=== PATIENT | female | born 1950 | race Caucasian/White ===

== ENCOUNTER 2022-03-15 17:52 | Observation (INO) ==
[2022-03-15] MEDS ORDERED: Ondansetron ODT 4 mg TAB 4 MG TAB SL ONE (20:35)
[2022-03-15 22:57] LABS: ABS Lymphocytes 1.3 10^3/ul (1.0-4.8); ABS Monocytes 0.3 10^3/ul (0-0.8); ABS Neutrophils 8.6 10^3/ul (1.5-7.7); Hematocrit 41 % (35-47); Hemoglobin 13.6 g/dL (12.0-16.0); Lymphocyte % 12.4 %; Mean Corpuscular HGB Conc 33 g/dL (31-36); Mean Corpuscular Hemoglobin 28 pg (27-31); Mean Corpuscular Volume 84 fL (80-97); Mean Platelet Volume 7.2 fL (7.4-10.4); Platelet Count 209 10^3/uL (150-450); Red Blood Count 4.86 10^6 /uL (3.70-4.87); Red Cell Distribution Width 13 % (10-15); White Blood Count 10.2 10^3/uL (3.5-10.8)
[2022-03-15 23:58] LABS: Albumin 4.3 g/dL (3.2-5.2); Calcium 9.2 mg/dL (8.6-10.3); Globulin 2.2 g/dL (2-4); Potassium 3.8 mmol/L (3.5-5.0); Total Bilirubin 0.6 mg/dL (0.2-1.0); Total Protein 6.5 g/dL (6.4-8.9); eGFR CKD-EPI 92.8 (>60)
[2022-03-16 00:29] LABS: High Sensitivity Troponin 1 Hr 5 pg/mL (<15)
[2022-03-16] MEDS ORDERED: Iohexol 350 (CONTRAST) 500 ML MDV IV ONE (00:59)
[2022-03-16] MEDS ORDERED: Gadoteridol (CONTRAST) 279.3 MG/ML 10 ML IV ONE (08:48)
[2022-03-16 10:58] LABS: HDL Cholesterol 68.9 mg/dL
[2022-03-16 15:25] VITALS: BP 130/75
== END 2022-03-16 15:55 | disposition home or self-care (01) ==
LOC: ED 17:52 → EDHOLD 17:52 → MED 03-16 11:54
PROVIDERS: ADMIT Internal Medicine; ATTEND Internal Medicine